=== PATIENT | male | born 1960 | race Two or more races ===

== ENCOUNTER 2019-09-15 14:15 | Inpatient (IN) | payer MEDICARE, OTHER ==
[~2019-09-15] VITALS: Ht 162.6 cm; Wt 69.0 kg
[2019-09-15] MEDS ORDERED: SODIUM CHLORIDE 0.9% 1,000 ML IV ONE ×3 (14:36→16:30)
[2019-09-15] MEDS ORDERED: MIDAZOLAM DRIP 50 mg/50mL 50 ML IV SCH (14:41)
[2019-09-15] MEDS ORDERED: ETOMIDATE (2MG/ML) 20ML VIAL IV ONE ×2 (14:42→14:45)
[2019-09-15] MEDS ORDERED: SUCCINYLCHOLINE CHLORIDE 20 MG/ML 10ML VIAL IV ONE ×2 (14:42→14:45)
[2019-09-15] MEDS ORDERED: MIDAZOLAM DRIP 50 mg/50mL 50 ML IV ONE ×2 (14:43→17:35)
[2019-09-15] MEDS ORDERED: cefTRIAXone 1GM/50ML D5W 50 ML IV ONE (14:45)
[2019-09-15 15:15] VITALS: BP 162/91
[2019-09-15 15:18] LABS: Basophils # (auto) 0 uL; Basophils % (auto) 0.9 % (0.0-2.0); Eosinophils # (auto) 0.1 uL; Eosinophils % (auto) 1.4 % (0.0-7.0); Hematocrit 26.5 % (41.0-53.0); Hemoglobin 9.2 g/dL (13.5-17.5); Lymphocytes # (auto) 0.5 uL; Lymphocytes % (auto) 8.7 % (10.0-50.0); Mean Corpuscular Hemoglobin 32.6 pg (28.0-32.0); Mean Corpuscular Hgb Conc. 34.5 g/dL (32.0-36.0); Mean Corpuscular Volume 94.3 fL (80.0-100.0); Monocytes # (auto) 0.4 uL; Monocytes % (auto) 7.9 % (0.0-12.0); Neutrophils # (auto) 4.4 uL; Neutrophils % (auto) 81.1 % (37.0-80.0); Platelet Count (auto) 64 10^3/uL (140-450); Red Blood Cells 2.81 10^6/uL (4.5-5.90); Red Cell Distribution Width 16.9 % (11.8-14.3); White Blood Cell 5.4 10^3/uL (4.4-10.8)
[2019-09-15] MEDS ORDERED: PROPOFOL 100 ML IV ONE (15:25)
[2019-09-15 15:39] LABS: Alanine Aminotransferase 37 U/L (16-61); Anion Gap 9 (5-15); Aspartate Aminotransferase 47 U/L (15-37); BUN/Creatinine Ratio 22.5; Blood Urea Nitrogen 27 mg/dL (7-18); Carbon Dioxide 20 mmol/L (21-32); Chloride 109 mmol/L (98-107); GFR African American 79 mL/min; GFR Non-African American 66 mL/min; Glucose 156 mg/dL (74-106); Potassium 4.2 mmol/L (3.5-5.1); Sodium 138 mmol/L (136-145)
[2019-09-15 15:43] LABS: Alkaline Phosphatase 99 U/L (45-117); Total Protein 7.2 g/dL (6.4-8.2)
[2019-09-15 15:48] LABS: INR 1.31 (0.9-1.15); Partial Thromboplastin Time 30.7 sec (23.64-32.05)
[2019-09-15] MEDS: PROPOFOL 100 ML IV SCH (16:04)
[2019-09-15 16:07] LABS: Urine WBC None Seen /hpf (0 - 3)
[2019-09-15 16:33] LABS: Urine Bacteria NONE SEEN /hpf (None Seen); Urine Blood Negative /uL (Negative); Urine Specific Gravity 1.017 (1.001-1.035)
[2019-09-15 16:40] VITALS: BP 101/56
[2019-09-15 17:15] LABS: Alcohol, Urine < 3.0 mg/dL (0-5); Amphetamine Screen, Urine NEGATIVE (NEGATIVE); Barbiturate Scree,Urine NEGATIVE (NEGATIVE); Benzodiazephine Screen, Urine NEGATIVE (NEGATIVE); Cannabinoid Screen, Urine NEGATIVE (NEGATIVE); Cocaine Screen, Urine NEGATIVE (NEGATIVE); Opiate Scree,Urine NEGATIVE (NEGATIVE); Phencyclidine Screen, Urine NEGATIVE (NEGATIVE)
[2019-09-15] MEDS ORDERED: MORPHINE SULF INJ 2 MG/ML SYRINGE 1ML IV PRN (17:30)
[2019-09-15] MEDS ORDERED: NITROGLYCERIN 0.4 MG SL TAB SL PRN (17:30)
[2019-09-15] MEDS: fentaNYL Drip 2500mCg/250mlNS 250 ML IV SCH (17:35)
[2019-09-15] MEDS: SODIUM CHLORIDE 0.9% 1,000 ML IV SCH (17:42)
[2019-09-15] MEDS ORDERED: NOREPINEPHRINE 8 MG/250ML KIT 250 ML IV ONE (17:47)
[2019-09-15] MEDS: NOREPINEPHRINE 8 MG/250ML KIT 250 ML IV SCH (17:50)
[2019-09-15 18:24] VITALS: BP 93/56
[2019-09-15 19:57] VITALS: BP 97/63
[2019-09-15 22:02] VITALS: BP 116/70
[2019-09-15 23:55] VITALS: BP 116/70
[2019-09-16] VITALS (15 sets, daily range): BP systolic 93–106; BP diastolic 54–65
[2019-09-16] MEDS: PROPOFOL 100 ML IV SCH (04:20)
[2019-09-16 06:42] LABS: Basophils # (auto) 0.1 uL; Eosinophils # (auto) 0.6 uL; Hematocrit 24.6 % (41.0-53.0); Hemoglobin 8.7 g/dL (13.5-17.5); Lymphocytes # (auto) 1.1 uL; Lymphocytes % (auto) 15.6 % (10.0-50.0); Mean Corpuscular Hemoglobin 32.9 pg (28.0-32.0); Mean Corpuscular Hgb Conc. 35.3 g/dL (32.0-36.0); Mean Corpuscular Volume 93.3 fL (80.0-100.0); Monocytes # (auto) 0.8 uL; Monocytes % (auto) 10.4 % (0.0-12.0); Neutrophils # (auto) 4.6 uL; Platelet Count (auto) 66 10^3/uL (140-450); Red Blood Cells 2.63 10^6/uL (4.5-5.90); Red Cell Distribution Width 16.9 % (11.8-14.3); White Blood Cell 7.2 10^3/uL (4.4-10.8)
[2019-09-16 06:43] LABS: Potassium 3.3 mmol/L (3.5-5.1)
[2019-09-16 06:49] LABS: Albumin 2.5 g/dL (3.4-5.0); BUN/Creatinine Ratio 22.1; Bilirubin, Total 2.2 mg/dL (0.2-1.0); Calcium 7.2 mg/dL (8.5-10.1); Total Protein 6.1 g/dL (6.4-8.2)
[2019-09-16] MEDS: SODIUM CHLORIDE 0.9% 1,000 ML IV SCH (06:54)
[2019-09-16] MEDS: NOREPINEPHRINE 8 MG/250ML KIT 250 ML IV SCH (06:54)
[2019-09-16] MEDS ORDERED: POTASSIUM CHLORIDE 20 MEQ, LIDOCAINE 1% (LOCAL ANESTH.) 2 ML in SODIUM CHL 0.9% 100 ML IV ONE (10:00)
[2019-09-16] MEDS ORDERED: ENOXAPARIN SOD 40 MG/0.4 ML SYRINGE SC SCH (10:00)
[2019-09-16] MEDS: LEVOFLOXACIN 750MG 150 ML IV SCH (10:12)
[2019-09-16] MEDS: PANTOPRAZOLE 40 MG/10 ML VIAL INJ IV SCH ×2 (10:57→21:59)
[2019-09-16] MEDS: SOD CHL 0.45% 1,000 ML IV SCH ×2 (11:15→21:58)
[2019-09-16] MEDS: POTASSIUM CHLORIDE 40 MEQ, LIDOCAINE 1% (LOCAL ANESTH.) 4 ML in SODIUM CHL 0.9% 100 ML IV ONE ×2 (11:15→12:12)
[2019-09-16] MEDS ORDERED: METOCLOPRAMIDE HCL 5MG/ml INJ 2ml VIAL IV ONE (11:30)
[2019-09-16] MEDS ORDERED: EPINEPHrine HCL 1 MG/10 ML SYRG ONE (12:28)
[2019-09-16] MEDS ORDERED: MIDAZOLAM HCL 5 MG/ML-1ML VIAL ONE (12:28)
[2019-09-16] MEDS ORDERED: SODIUM CHLORIDE LOCK 0 ML ONE (12:28)
[2019-09-16] MEDS ORDERED: OCTREOTIDE ACETATE 100 MCG in SODIUM CHL 0.9% 50 ML IV ONE (13:00)
[2019-09-16] MEDS: metroNIDAZOLE 500MG/100ML 100 ML IV SCH ×2 (14:00→21:59)
[2019-09-16 14:08] LABS: Hemoglobin 8.6 g/dL (13.5-17.5)
[2019-09-16 14:10] LABS: Hematocrit 24.8 % (41.0-53.0)
[2019-09-16] MEDS: OCTREOTIDE ACETATE 500 MCG in SODIUM CHL 0.9% 99 ML IV SCH ×2 (14:20→22:25)
--- NOTE | 2019-09-16 16:39 | NUR ---
PULLED BACK ETT PER XRAY. ETT AT 22CM AT THE LIPLINE.
[2019-09-16] MEDS: fentaNYL Drip 2500mCg/250mlNS 250 ML IV SCH (17:47)
[2019-09-16 19:05] LABS: Hematocrit 24.9 % (41.0-53.0); Hemoglobin 8.4 g/dL (13.5-17.5)
[2019-09-17] VITALS (43 sets, daily range): BP systolic 98–132; BP diastolic 51–76
[2019-09-17 00:34] LABS: Hematocrit 27.3 % (41.0-53.0); Hemoglobin 9.1 g/dL (13.5-17.5)
[2019-09-17] MEDS: fentaNYL Drip 2500mCg/250mlNS 250 ML IV SCH (02:07)
[2019-09-17] MEDS: metroNIDAZOLE 500MG/100ML 100 ML IV SCH ×3 (06:29→22:00)
[2019-09-17] MEDS ORDERED: MIDAZOLAM DRIP 50 mg/50mL 50 ML IV ONE (07:33)
[2019-09-17] MEDS: SOD CHL 0.45% 1,000 ML IV SCH ×2 (08:32→18:18)
[2019-09-17] MEDS: MIDAZOLAM DRIP 50 mg/50mL 50 ML IV SCH (08:32)
[2019-09-17] MEDS: OCTREOTIDE ACETATE 500 MCG in SODIUM CHL 0.9% 99 ML IV SCH ×2 (08:40→18:20)
--- NOTE | 2019-09-17 08:40 | NUR ---
WOUND CARE NOTE: PATIENT RECENTLY ADMITTED TO [facility] WITH DIAGNOSIS OF ACUTE RESPIRATORY FAILURE. CURRENT POLY SCORE IS 12. PATIENT IS INTUBATED, SEDATED, ICU STATUS IN THE ER. HE IS RESTING ON HOSPITAL BED FOR COMFORT. HE HAS MULTIPLE INTACT SCRATCHES TO BLE, BUT IS OTHERWISE WOUND FREE. SKIN/WOUND PLAN IMPLEMENTED. PATIENT WOULD BENEFIT FROM: FREQUENT TURN SCHEDULE Q 2 HOURS PRN CONDITION PERMITS, WITH PRESSURE REDISTRIBUTION USING PILLOWS/WEDGES, BID/PRN APPLICATION WITH MOISTURE BARRIER CREAM, OPTIFOAM GENTLE SACRAL DRESSING, SKIN/WOUND CARE PLAN, DIETARY CONSULT, CONTINUED MONITORING BY WOUND CARE TEAM.
[2019-09-17] MEDS: PROPOFOL 100 ML IV SCH (08:42)
[2019-09-17] MEDS: PANTOPRAZOLE 40 MG/10 ML VIAL INJ IV SCH ×2 (10:12→22:00)
[2019-09-17] MEDS: LEVOFLOXACIN 750MG 150 ML IV SCH (10:12)
[2019-09-17] MEDS ORDERED: THIAMINE 100mg/ml INJ (200mg/2ml VIAL) IV ONE (10:45)
[2019-09-17] MEDS ORDERED: FOLIC ACID 1 MG in D5W 5% 50 ML IV ONE (10:45)
[2019-09-17 11:09] LABS: Basophils # (auto) 0.1 uL; Eosinophils # (auto) 0.6 uL; Hemoglobin 9.1 g/dL (13.5-17.5); Lymphocytes # (auto) 1.1 uL; Mean Corpuscular Hemoglobin 32.4 pg (28.0-32.0); Mean Corpuscular Hgb Conc. 34.4 g/dL (32.0-36.0); White Blood Cell 6.1 10^3/uL (4.4-10.8)
[2019-09-17 11:10] LABS: Basophils % (auto) 2.1 % (0.0-2.0); Eosinophils % (auto) 9.4 % (0.0-7.0); Hematocrit 26.3 % (41.0-53.0); Lymphocytes % (auto) 18.4 % (10.0-50.0); Monocytes # (auto) 0.8 uL; Monocytes % (auto) 12.4 % (0.0-12.0); Neutrophils # (auto) 3.5 uL; Neutrophils % (auto) 57.7 % (37.0-80.0); Platelet Count (auto) 53 10^3/uL (140-450); Red Cell Distribution Width 16.7 % (11.8-14.3)
[2019-09-17 11:30] LABS: Potassium 3.6 mmol/L (3.5-5.1)
[2019-09-17 11:34] LABS: BUN/Creatinine Ratio 19.3; Total Protein 5.1 g/dL (6.4-8.2)
--- NOTE | 2019-09-17 11:58 | NUR ---
PT OFF SEDATION BUT UNABLE TO FOLLOW COMMANDS. WAITING FOR PT TO WAKE UP TO START CPAP TRIAL.
--- NOTE | 2019-09-17 16:20 | NUR ---
Admit to ICU from ER on vent HAND,JORDONadmitted to ICU via gurney on secured entrance monitor, intubated and being bagged by Respiratory Therapist. Patient transfered to bed, connected to mechanical ventilator by therapist, ALVINO at bedside. AC MODE RR 14 TV 500 30%FI02 PEEP 5. Patient connected to ICU monitoring, weighed by bedscale, oriented to Caty Reilly primary RN, unit, ventilator. No sedation in place. Per report cpap was attempted today but patient did not wake up. Patient noted to move bilateral lower extremities. Patient note opening eyes, no answer simple command. When patient left to rest leg moving noted to stop. Pt to remain off sedation. paged to obtain precedex for sedation. Awaiting callback. NOTE: IV's patent, Trotter draining dark, brown urine. See physical for further assessment.
--- NOTE | 2019-09-17 16:28 | NUR ---
assessment Patient is a 59 year old male on a vent. No family contact in computer. Will try to speak with family if they come to bedside. Addendum: 09/18/19 at 1629 by Nicole TREJO Amended: Links added.
--- NOTE | 2019-09-17 16:31 | NUR ---
PT TRANSPORTED FROM ER TO ICU WITH NO INCIDENT REPORTED PT WAS MANUALLY VENTILATED. PT FARIDA. WELL PLACED PT ON PREVIOUS VENT SETTINGS. SPO2 97%.
[2019-09-17] MEDS: NOREPINEPHRINE 8 MG/250ML KIT 250 ML IV SCH (18:00)
[2019-09-17] MEDS ORDERED: OME20T PO (18:24)
--- NOTE | 2019-09-17 18:24 | NUR ---
HOME MEDICATIONS BOTTLES BROUGHT IN ZIPLOCK BAG AT BEDSIDE BY ER NURSE. MEDICATION LABELS DIFFICULT TO READ LABELS ARE FADED AWAY. UNABLE TO OBTAIN LIST. PT INTUBATED/NON VERBAL, UNABLE TO COMPREHEND. NO FAMILY CONTACT. Addendum: 09/17/19 at 1827 by Caty Reilly RN MEDICATIONS TAKEN TO PHARMACY.
--- NOTE | 2019-09-17 18:58 | NUR ---
MD [facility] HOSPITALIST RE-PAGED FOR LIGHT SEDATION. PT CONTINUES TO MOVE LOWER EXTREMITIES PERIODICALLY, NOT OPENING EYES OR FOLLOWING COMMAND. Addendum: 09/17/19 at 1905 by Caty Reilly RN [facility] CALLED BACK. PATIENT TO BE PLACED ON FENT AT LOW DOSE WITH LOW DOSE OF PROPOFOL IF NEEDED. NO VERSED AT THIS TIME. WILL REPORT TO NOC NURSE TO LIGHTLY SEDATED FOR POSSIBLE CPAP IN A.M.
--- NOTE | 2019-09-17 20:30 | NUR ---
dr paul called dr paul called, orders received. read back orders and received a verbal confirmation that the read back was accurate.
[2019-09-18] VITALS (94 sets, daily range): BP systolic 81–126; BP diastolic 39–80
[2019-09-18] MEDS ORDERED: LACTULOSE 20Gm/30ML SOLN PR SCH
[2019-09-18] MEDS: SOD CHL 0.45% 1,000 ML IV SCH (00:44)
--- NOTE | 2019-09-18 03:20 | NUR ---
rectal tube placed as ordered by md paul, rectal tube placed. pt tolerated care. will monitor.
[2019-09-18 04:59] LABS: Basophils # (auto) 0.1 uL; Basophils % (auto) 1.1 % (0.0-2.0); Eosinophils # (auto) 0.2 uL; Eosinophils % (auto) 4.5 % (0.0-7.0); Hematocrit 24.8 % (41.0-53.0); Hemoglobin 8.4 g/dL (13.5-17.5); Lymphocytes # (auto) 0.5 uL; Lymphocytes % (auto) 9.9 % (10.0-50.0); Mean Corpuscular Hemoglobin 32.3 pg (28.0-32.0); Mean Corpuscular Hgb Conc. 34.1 g/dL (32.0-36.0); Mean Corpuscular Volume 94.7 fL (80.0-100.0); Monocytes # (auto) 0.4 uL; Monocytes % (auto) 8.6 % (0.0-12.0); Neutrophils # (auto) 3.7 uL; Neutrophils % (auto) 75.9 % (37.0-80.0); Platelet Count (auto) 41 10^3/uL (140-450); Red Blood Cells 2.61 10^6/uL (4.5-5.90); Red Cell Distribution Width 16.9 % (11.8-14.3); White Blood Cell 4.8 10^3/uL (4.4-10.8)
[2019-09-18] MEDS: OCTREOTIDE ACETATE 500 MCG in SODIUM CHL 0.9% 99 ML IV SCH (05:09)
[2019-09-18] MEDS ORDERED: PROPOFOL 0 ML IV ONE (05:19)
[2019-09-18 05:21] LABS: Albumin 2.1 g/dL (3.4-5.0); Calcium 7.1 mg/dL (8.5-10.1); Potassium 3.8 mmol/L (3.5-5.1)
[2019-09-18 05:24] LABS: BUN/Creatinine Ratio 19.7; Bilirubin, Total 1.9 mg/dL (0.2-1.0); Total Protein 5.1 g/dL (6.4-8.2)
[2019-09-18] MEDS: metroNIDAZOLE 500MG/100ML 100 ML IV SCH ×3 (06:00→22:08)
[2019-09-18] MEDS: LACTULOSE 20Gm/30ML SOLN PR SCH ×2 (06:00)
--- NOTE | 2019-09-18 07:30 | NUR ---
REPORT REPORT RECEIVED FROM CANDICE RNTERRY. BEDSIDE CHECK DONE. PT RESTING IN BED WITH EYES OPEN AND OCCASIONALLY LIFTING BOTH OF HIS ARMS UP IN THE AIR. DOES NOT FOLLOW ANY SIMPLE COMMANDS.
[2019-09-18] MEDS: MIDAZOLAM DRIP 50 mg/50mL 50 ML IV SCH (07:31)
--- NOTE | 2019-09-18 07:50 | NUR ---
MD/PHONE RECEIVED A PHONE CALL FROM DR CHARLES. SHE ASKED IF PT AWAKE AND FOLLOWING COMMANDS YET. I LET HER KNOW THAT THE DIPRIVAN WAS RESTARTED AND IS RUNNING AT 15 MCG PT WAS VERY RESTLESS AND THROWING HIS LEGS OVER THE SIDE OF THE BED DURING THE MIDDLE OF THE NIGHT. WILL TURN OFF THE DIPRIVAN WHEN I DO MY ASSESSMENT SO I CAN MONITOR HIM.
[2019-09-18] MEDS ORDERED: OCTREOTIDE ACETATE 500 MCG in SODIUM CHL 0.9% 99 ML IV SCH (08:00)
--- NOTE | 2019-09-18 08:30 | NUR ---
ASSESSMENT SEDATION TURNED OFF PER DR CHARLES. PT OPENS EYES TO ST Addendum: 09/18/19 at 0928 by Danya Calderon RN STIMULATION, BUT DOES NOT FOLLOW ANY SIMPLE COMMANDS. ON THE VENTILATOR WITH SETTINGS : 8 FR ETT/23 AT THE LIP, AC 14, TV 500, 30% FIO2 AND PEEP OF 5. LUNGS CLEAR AND MILDLY DIMINISHED THROUGHOUT. SUCTIONED FOR SMALL AMOUNT OF THIN CLEAR FLUID VIA ETT AND MODERATE AMOUNT OF THICK CLEAR FLUID ORALLY. RR 14. SAT OF 100%. TELE SR 81 WITH INVERTED T WAVES IN LEADS II AND AVF. PALPABLE PULSES TO ALL EXTREMITIES WITH NO EDEMA NOTED. SCDS TO BLE. ABD SOFT WITH HYPOACTIVE BOWEL SOUNDS. NO OGT/NGT DUE TO BANDING OF ESOPHAGEAL VARICES. PT WITH FLEXISEAL AND IS DRAINING WATERY BROWN LIQUID BM. RAY CATHETER DRAINING CLEAR DARK TANNER URINE. TURNED FOR COMFORT TO HIS RIGHT SIDE. SKIN IS INTACT EXCEPT FOR SOME SCABBED SCRATCHES TO BLE. RAILS UP X4 AND BED ALARM ON FOR PT SAFETY. CONTINUE TO MONITOR.
--- NOTE | 2019-09-18 09:20 | NUR ---
CPAP STARTED ON CPAP PER DR CHARLES. 84-17 100% AND 97/60. CPAP WITH FIO2 OF 30% , PEEP OF 5, AND PRESSURE SUPPORT OF 8. CONTINUE TO MONITOR.
--- NOTE | 2019-09-18 09:28 | NUR ---
A BIT RESTLESS,PT SHIFTING HIS POSITION IN BED. 87-19-100% AND 97/60. CONTINUE TO MONITOR.
[2019-09-18] MEDS: LEVOFLOXACIN 750MG 150 ML IV SCH (10:32)
[2019-09-18] MEDS: THIAMINE 100mg/ml INJ (200mg/2ml VIAL) IV SCH (10:33)
[2019-09-18] MEDS: FOLIC ACID 1 MG in D5W 5% 50 ML IV SCH (10:33)
[2019-09-18] MEDS: PANTOPRAZOLE 40 MG/10 ML VIAL INJ IV SCH ×2 (10:33→22:08)
--- NOTE | 2019-09-18 11:20 | NUR ---
PT. EXTUBATED AND PLACED ON 30% COOL AEROSOL MASK, PER DR. CHARLES'S T.O.. VITALS: HR=81,RR=16, ML92=111%,GG=879/58. NO RESP. DISTRESS NOTED. BS. ARE CLEAR BILATERALLY. PT. HAS A GOOD COUGH, COUGHS UP SOME PALE WHITE TO YELLOW SECRETIONS. NO STRIDOR NOTED AT THIS TIME.
--- NOTE | 2019-09-18 12:20 | NUR ---
LUNGS REMAIN CLEAR. CMM AT 30% AND O2 SAT OF 98%. PT NOT QUITE RESTLESS EARLIER. CONTINUE TO MONITOR/
[2019-09-18] MEDS ORDERED: LORazepam 2MG/ML-1ML VIAL IV ONE (13:45)
--- NOTE | 2019-09-18 13:45 | NUR ---
PT BECOMING VERY RESTLESS AND UNCOOPERATIVE. HE KEEPS TRYING TO GET OOB. HE WANTS TO EAT AND GO HOME. I PAGED DR CHARLES AND SHE CAME AND TALKED TO THE PT LETTING HIM KNOW THAT HE JUST CAME OFF THE VENTILATOR AND IS TOO SICK TO GO HOME. PT NOT SATISFIED.
[2019-09-18] MEDS ORDERED: LORazepam 2MG/ML-1ML VIAL ONE (13:52)
--- NOTE | 2019-09-18 13:55 | NUR ---
STEPPED OUT TO THE PANTRY TO GET HIM SOME JUICE AND THE BED ALARM WENT OFF, PT TRYING TO GET OOB. PULLED PT BACK UP IN BED. ADMINISTERED 1 MG IV ATIVAN PER DR CHARLES.
[2019-09-18] MEDS: IPRATROPIUM BROM 0.5 MG/2.5ML INH SOL NEB SCH ×2 (13:58→16:07)
[2019-09-18] MEDS: ALBUTEROL SULF 2.5 MG/0.5ML(0.5%) NEB SOLN NEB SCH ×2 (13:58→16:07)
[2019-09-18] MEDS: GABAPENTIN 300 MG CAP PO SCH ×2 (14:16→22:09)
--- NOTE | 2019-09-18 15:00 | NUR ---
Nutrition Consult/Assessment Notes please see attached link for complete assessment Est. Needs BW 65 [id number] kcal (25-30 kcal/kgBW), 65-84 gms pro (1.0-1.3 gms/kgBW r/t severe hypoalb). Will continue to monitor pertinent labs and reassess nutrient need prn Addendum: 09/18/19 at [address] Amended: Links added.
--- NOTE | 2019-09-18 15:04 | NUR ---
PT STILL TRYING TO GET OOB BUT NOW HAS A SITTER , CANDACE ESCOBAR, AT THE BEDSIDE FOR PT SAFETY.
--- NOTE | 2019-09-18 15:55 | NUR ---
RESPIRATORY/MD PT NOTED TO HAVE VS: 120-43-98% AND 91/53. INCREASED WORK OF BREATHING WITH GRUNTING SOUND MADE. LUNGS CLEAR AND NO STRIDOR NOTED. TRIED TO CALM PT BUT DID NOT MAKE A DIFFERENCE. PAGED DR CHARLES AND SHE WANTS AN ABG AND SHE IS COMING.
--- NOTE | 2019-09-18 16:45 | NUR ---
RETURNED FROM LUNCH. JOSHUA FELICIANO RN COVERED FOR ME WHILE I WAS GONE. PT NOW RESTING QUIETLY AND VSS. DR ENAMORADO AT THE BEDSIDE AND PREPARING FOR A THORACENTESIS.
--- NOTE | 2019-09-18 17:00 | NUR ---
THORACENTESIS COMPLETED AND 2300ML REMOVED. SAMPLE TAKEN TO LAB FOR TESTS ORDERED BY DR ENAMORADO. PT STILL RESTING , WITHDRAWS TO PAINFUL STIMULI. VSS CONTINUE TO MONITOR.
[2019-09-18 17:25] LABS: Calcium 7.2 mg/dL (8.5-10.1)
[2019-09-18 17:28] LABS: BUN/Creatinine Ratio 15.6; Potassium 3.6 mmol/L (3.5-5.1)
[2019-09-18] MEDS ORDERED: SODIUM BICARBONATE 8.4 % INJ 50ML VIAL IV ONE (18:00)
[2019-09-18] MEDS ORDERED: LACTULOSE 20Gm/30ML SOLN PO SCH (18:00)
--- NOTE | 2019-09-18 19:30 | NUR ---
REPORT REPORT GIVEN TO SADI HARVEY RN.
--- NOTE | 2019-09-18 19:35 | NUR ---
DR CHARLES CALLED AND WAS UPDATED ON THE PT'S CONDITION, STILL SLEEPY, NOT AWAKE ENOUGH TO TRY TO GIVE ANYTHING ORALLY AND SBP IN THE 80'S. ORDERED RECEIVED FOR ALBUMIN 2 BOTTLES, NS AT 75ML/HR AND LACTULOSE BACK TO PER RECTUM. ALSO MADE AWARE OF 2300 ML FLUID OFF WITH THORACENTESIS.
--- NOTE | 2019-09-18 19:36 | NUR ---
Opening Shift Note Assumed care of patient, lying on bed with eyes closed, arousal by voice, oriented to self, still sleepy and garbled. Breathing even and nonlabored, on Venturi mask 50% 10LPM, No S/S of distress/SOB or pain. BP low, SBP in the 80's MAP 50's-60's, MD made aware and ordered IVF and Albumin for Pt, will administer fluid as order. TLC at right IJ, positive blood return, flushed well. Saline locks at arms x3, flushed well. Trotter's catheter hung to gravity with dark kirk urine. Flexi seal in place with dark brown watery stool in the tubing. Bed in low position, call light within reach, all alarms are audible, fall and safety precaution in place, will put SCD to both legs. Instructed on POC and to call for assist PRN, will continue to monitor for changes Q1hr and PRN.
[2019-09-18] MEDS ORDERED: ALBUMIN 25% 100 ML IV ONE ×2 (19:45)
[2019-09-18] MEDS: SODIUM CHLORIDE 0.9% 1,000 ML IV SCH (20:48)
--- NOTE | 2019-09-18 21:05 | NUR ---
Stool occult blood sent.
--- NOTE | 2019-09-18 22:00 | NUR ---
Restless/ confusion Pt woke up and slide down to the end of the bed. Pt pulled oxygen mask. The bed exit alarmed. Helped Pt back to bed. Pt confused, said I want to go home, not aware of the situation regardless explanation. Patient said I want a sandwich. Pt refused other kind of food.
[2019-09-18] MEDS: chlordiazePOXIDE HCL 5 MG CAP PO PRN (22:09)
--- NOTE | 2019-09-18 22:30 | NUR ---
Supplement/ medication Provided Pt apple sauce, orange juice, a cup of soup. Librium PRN given. Pt cooperated with medication given. Pt still confused and asked to go home, bathroom, garage. Pt asked to get on the ambulance. Pt asked for pants. Adjusted position and helped Pt to have a cup of soup and apple sauce. Pt swallowed well without coughing. Pt unable to lay still. Pt moved and agitated q3-10mins.
--- NOTE | 2019-09-18 23:00 | NUR ---
Elimination Flexi seal leaked, small to moderate dark black/ brown. Pt agitated, linens dirty from moving around. Cleaning done, linen changed. Continue care.
--- NOTE | 2019-09-18 23:30 | NUR ---
Condition update/ agitation Pt woke up after rested on bed for 15mins and tried to get OOB. Sitter at bedside at this time for safety. Pt asked for more soup. Pt drank a cup of soup well, no coughing upon swallowing. Continue care. Addendum: 09/19/19 at 0458 by Cuate Platt RN Pt was a feeder. Pt able to hold a cup weakly but unable to lift the cup and drink by self independently.
[2019-09-19] VITALS (71 sets, daily range): BP systolic 72–122; BP diastolic 29–72
[2019-09-19] MEDS: ALBUTEROL SULF 2.5 MG/0.5ML(0.5%) NEB SOLN NEB SCH ×5 (00:04→23:47)
[2019-09-19] MEDS: IPRATROPIUM BROM 0.5 MG/2.5ML INH SOL NEB SCH ×5 (00:04→23:46)
--- NOTE | 2019-09-19 00:04 | NUR ---
Condition update/ agitation Pt was very agitated and tried to get OOB at all time. Labile BP with difficulty to measure due to agitation. Paged Hospitalist. 00.09am Pt's condition notified to Tez MACEDO. Haldol 2.5mg IM once ordered, will administer as order, see EMAR for details.
[2019-09-19] MEDS ORDERED: HALOPERIDOL LACTATE 5 MG/ML INJ VIAL IM ONE (00:15)
[2019-09-19] MEDS: LACTULOSE 20Gm/30ML SOLN PR SCH ×2 (00:25→05:17)
--- NOTE | 2019-09-19 00:35 | NUR ---
Condition update/ restless Pt agitated, tried to get OOB all the time, Haldol given as order. Pt tried to pull tubes and wires. Put mittens on. Sitter at bedside. Lactulose MD giving as order. Addendum: 09/19/19 at 0209 by Cuate Platt RN BP labile with difficulty to measure due to agitation. See VS sheet for details.
--- NOTE | 2019-09-19 01:30 | NUR ---
Condition update/ linen changed/ agitation/ skin tear Pt moving on bed, tried sit up, get OOB. All linens dirty. Saline locks x2 on both arms leaking from agitation, will d/c later. Partial cleaning done, complete linen changed. Mittens changed. Noted a skin tear at right FA after Pt lying back and slightly calm down. Wound d/s done with NS and patted dry, covered with Optifoam. Fall and safety precaution in place. Continue care. Addendum: 09/19/19 at 0215 by Cuate Platt RN Pt slightly SOB with mild audible wheezing due to agitation. No desaturation. Pt asked for oxygen. Put Pt on O2NC 2LPM for comfort and support. Re-oriented Pt and try to calm the Pt down. Continue monitoring.
--- NOTE | 2019-09-19 01:56 | NUR ---
IV removal IV DC'd with clean sterile technique at left wrist/FA due to leaking/ agitating, catheter fully intact. Pressure dressing applied to site. Patient tolerated well. IV DC'd with clean sterile technique at right FA due to leaking/ agitating, catheter fully intact. Pressure dressing applied to site.
--- NOTE | 2019-09-19 02:47 | NUR ---
ROUNDED: SLEEPING. EVEN AND UNLABORED BREATHING. VSS. WILL CONT CARE
--- NOTE | 2019-09-19 02:48 | NUR ---
SBP READING IN THE 70-80s, CUFF ON CALF AND PATIENT RESTING WITH LEGS ELEVATED.
[2019-09-19 03:44] LABS: Basophils # (auto) 0 uL; Eosinophils # (auto) 0.1 uL; Lymphocytes # (auto) 0.5 uL; Monocytes # (auto) 0.4 uL; Neutrophils # (auto) 4.1 uL; Neutrophils % (auto) 78.3 % (37.0-80.0); White Blood Cell 5.2 10^3/uL (4.4-10.8)
[2019-09-19 03:46] LABS: Basophils % (auto) 0.5 % (0.0-2.0); Eosinophils % (auto) 2.7 % (0.0-7.0); Hematocrit 20.4 % (41.0-53.0); Hemoglobin 7.2 g/dL (13.5-17.5); Lymphocytes % (auto) 10.2 % (10.0-50.0); Mean Corpuscular Hemoglobin 33.3 pg (28.0-32.0); Mean Corpuscular Hgb Conc. 35.3 g/dL (32.0-36.0); Mean Corpuscular Volume 94.3 fL (80.0-100.0); Monocytes % (auto) 8.3 % (0.0-12.0); Platelet Count (auto) 35 10^3/uL (140-450); Red Blood Cells 2.16 10^6/uL (4.5-5.90); Red Cell Distribution Width 16.8 % (11.8-14.3)
--- NOTE | 2019-09-19 04:00 | NUR ---
Condition update/ labile BP Pt resting in bed, breathing even and nonlabored, POX 100% with O2NC 2LPM. EKG showed SR, HR 70's, BP 80's/40's, will repeat and page Hospitalist of persistence. Continue care.
[2019-09-19 04:04] LABS: Albumin 2.4 g/dL (3.4-5.0); Calcium 7.3 mg/dL (8.5-10.1); Potassium 3.4 mmol/L (3.5-5.1)
[2019-09-19 04:08] LABS: Total Protein 5.1 g/dL (6.4-8.2)
[2019-09-19 04:20] LABS: BUN/Creatinine Ratio 17.4
[2019-09-19] MEDS: metroNIDAZOLE 500MG/100ML 100 ML IV SCH ×3 (05:16→21:37)
--- NOTE | 2019-09-19 05:20 | NUR ---
Condition update Hospitalist called back, Pt's condition reported, order received to give 5% albumin 250ml IV once. Pt woke up, agitated. Breathing tachypneic and moist while agitated, no desaturation with 2LPM O2NC. BP increased when awake to 90's/50's, will hold Albumin for now and recheck again. Lactulose giving through VT. Continue care and will endorsed to day shift.
[2019-09-19] MEDS: GABAPENTIN 300 MG CAP PO SCH ×3 (06:17→22:00)
[2019-09-19] MEDS ORDERED: ALBUMIN 5% 250 ML IV ONE (06:30)
--- NOTE | 2019-09-19 07:30 | NUR ---
REPORT REPORT RECEIVED FROM CNADICE RNSADI. BEDSIDE CHECK DONE. PT HAS A SITTER, HOA, AT THE BEDSIDE FOR PT SAFETY, AT TIMES HE TRIES TO GET OOB. PT RESTING IN BED AND A/O TO SELF ONLY. CONTINUE TO MONITOR.
--- NOTE | 2019-09-19 08:25 | NUR ---
PT TEACHING PT A/O TO SELF ONLY, NOT RETAINING INFORMATION PROVIDED. Addendum: 09/19/19 at 1448 by Danya Calderon RN Amended: Links added.
--- NOTE | 2019-09-19 08:25 | NUR ---
ASSESSMENT PT AWAKE BUT A/O TO NAME. MOVES ALL EXTREMITIES AND IS STILL RESTLESS AT TIMES. HOA DUMONT, AT THE PT'S BEDSIDE TO ASSIST PT AND PREVENT PT FROM GETTING OOB. LUNGS CLEAR THROUGHOUT. O2 AT 2 L/M VIA NC WITH O2 SAT OF 97%. TELE SR WITH INVERTED T WAVES IN LEAD AVL AND AVF. PALPABLE PULSES TO ALL EXTREMITIES. RAY CATHETER DRAINING CLEAR DARK TANNER URINE. FLEXISEAL IN PLACE AND DRAINING SCANT AMOUNT OF THIN WATERY BROWN FLUID. SKIN IS INTACT. REPOSITIONED ON TO HIS BACK FOR BREAKFAST. CONTINUE TO MONITOR.
[2019-09-19] MEDS: SODIUM CHLORIDE 0.9% 1,000 ML IV SCH ×2 (08:44→12:30)
--- NOTE | 2019-09-19 09:00 | NUR ---
GABRIELA O TECH, AT BEDSIDE AND ECHO IN PROGRESS.
--- NOTE | 2019-09-19 09:05 | NUR ---
SBP IN THE 70'S. INFUSING 5% ALBUMIN ORDERED PREVIOUSLY. PAGING DR CHARLES TO SEE IF SHE WANTS PRESSORS.
--- NOTE | 2019-09-19 09:15 | NUR ---
SPOKE WITH DR CHARLES, BY PHONE, AND ADVISED OF SBP 70'S AND THAT A ONE TIME ORDER OF IV ALBUMIN IS INFUSING. SHE WANTS ME TO PLACE TH PT IN [place] AND SHE WILL BE COMING TO SEE HIM.
--- NOTE | 2019-09-19 09:24 | NUR ---
RECHECKED PT'S BP AND NOW 85/51. CONTINUE TO MONITOR.
[2019-09-19] MEDS: cefTRIAXone 1GM/50ML D5W 50 ML IV SCH (10:34)
[2019-09-19] MEDS: THIAMINE 100mg/ml INJ (200mg/2ml VIAL) IV SCH (10:35)
[2019-09-19] MEDS: PANTOPRAZOLE 40 MG/10 ML VIAL INJ IV SCH ×2 (10:35→20:26)
[2019-09-19] MEDS: FOLIC ACID 1 MG in D5W 5% 50 ML IV SCH (11:02)
--- NOTE | 2019-09-19 11:10 | NUR ---
PT NOW WITH COARSE EXP RHONCHI THROUGHOUT. RR NOW 24-26. CALLED AND NOTIFIED DR CHARLES. SHE STATES SHE WILL PUT IN AN ORDER FOR STEROIDS. AWAITING ORDER.
--- NOTE | 2019-09-19 11:22 | NUR ---
MD VISIT DR FRITZ IN TO SEE THE PT. UPDATED HIM ON THE PT'S CONDITION. HE IS AWARE OF THE DROP IN THE H/H TO 7.2/20.4 AND ASKED IF ANY BLEEDING. TOLD HIM NONE SO FAR THIS SHIFT AND NONE REPORTED BY NIGHT RN. CONTINUE TO MONITOR.
--- NOTE | 2019-09-19 12:30 | NUR ---
RAY/FLEXISEAL/HEAD CT PT'S RAY CATHETER AND FLEXISEAL DC'D PER DR CHARLES. TOLERATED WELL BY PT. PT THEN TRANSPORTED TO RADIOLOGY SEPT FRO HEAD CT WITH NO CONTRAST. PT ON PORTABLE O2 AND SWEET POTATO DISINTEGRATOR FOR TRANSPORT AND TEST.
--- NOTE | 2019-09-19 12:50 | NUR ---
PT RETURNED TO ROOM FROM CT SCANS. CONNECTED TO BEDSIDE MONITORING AND O2,. ALSO RESTARTED IVF OF NS AT 50 ML/HR. CONTINUE TO MONITOR.
[2019-09-19 13:17] LABS: Hematocrit 22.3 % (41.0-53.0); Hemoglobin 7.6 g/dL (13.5-17.5)
--- NOTE | 2019-09-19 13:22 | NUR ---
PT TAKING HIS CLEAR LIQUID LUNCH, FED BY DIRECTOR DATA. HE FALLS ASLEEP OFF AND ON. CONTINUE TO MONITOR.
--- NOTE | 2019-09-19 13:41 | NUR ---
re-assessment Per consult unable to obtain patients correct information, address, no family. I have not been able to obtain any information on patient either. I have notified Danya SHELTON to call me if family or friends come in. Addendum: 09/19/19 at 1350 by Nicole Zee Amended: Links added.
--- NOTE | 2019-09-19 15:00 | NUR ---
PT SLEEPING WITH RESPIRATIONS EVEN AND UNLABORED. LUNGS WITH MILD EXPIRATORY WHEEZING NOTED BILATERALLY. O2 SAT OF 92% WITH O2 AT 2 L/M VIA NCA. PT HAS BEEN DOWNGRADED TO MED SURG WITH A SITTER. STILL WAITING FOR A BED ASSIGNMENT.
--- NOTE | 2019-09-19 16:30 | NUR ---
INCONTINENT OF A LARGE AMOUNT OF YELLOW URINE. SUNNY CARE GIVEN AND PARTIAL LINEN CHANGE DONE.
--- NOTE | 2019-09-19 18:14 | NUR ---
PT STILL GROGGY BUT TRYING TO GET OOB. BECOMES SOB WITH THE EXERTION. PULLED UPP IN BED AND TRIED TO MAKE COMFORTABLE AND ARE NOW WAITING FOR THE DINNER TO BE DELIVERED.
[2019-09-19 18:31] LABS: Hematocrit 22.7 % (41.0-53.0); Hemoglobin 7.8 g/dL (13.5-17.5)
--- NOTE | 2019-09-19 19:30 | NUR ---
report received and assumed care; see interventions for assessment; pt. in bed and repositioned for comfort and safety; sitter at bedside-pt. continuing to attempt to get out of bed; vs stable at this time; will cont. to monitor.
--- NOTE | 2019-09-19 20:10 | NUR ---
pt. c/o nausea; gave protonix ivp now instead of 22:00; will cont. to monitor.
--- NOTE | 2019-09-19 22:55 | NUR ---
REPORT GIVEN TO NIKITA WONG AND WILL TRANSPORT PATIENT TO RM#[id number] WITH A SITTER.
--- NOTE | 2019-09-19 23:05 | NUR ---
[facility] TRANSFER TO TELEMETRY JORDON HAND received to Telemetry unit from [facility] after telephone report received. Patient oriented to Ani Urbano, primary RN, unit, room, bed, and unit policies regarding patient care and visiting hours. Patient now on continuous telemetry monitoring, tele box # [id number] and telemetry reading on arrival to unit is sinus rhythm 94. Patient placed on bedside oxygen, weighed by bedscale and encouraged to call if they need something.Patient oriented to self only. Sitter at bedside for patient safety. Will continue to monitor Q1hour and prn.
[2019-09-20 01:22] LABS: Hematocrit 22.8 % (41.0-53.0); Hemoglobin 7.6 g/dL (13.5-17.5)
[2019-09-20] MEDS: metroNIDAZOLE 500MG/100ML 100 ML IV SCH ×3 (06:15→21:41)
[2019-09-20] MEDS: GABAPENTIN 300 MG CAP PO SCH ×3 (06:16→21:40)
[2019-09-20 06:18] LABS: Basophils # (auto) 0 uL; Eosinophils # (auto) 0.3 uL; Hematocrit 21.4 % (41.0-53.0); Hemoglobin 7.4 g/dL (13.5-17.5); Lymphocytes # (auto) 0.6 uL; Lymphocytes % (auto) 14.1 % (10.0-50.0); Monocytes # (auto) 0.5 uL; Platelet Count (auto) 45 10^3/uL (140-450); White Blood Cell 4.5 10^3/uL (4.4-10.8)
[2019-09-20 06:20] LABS: Basophils % (auto) 0.9 % (0.0-2.0); Eosinophils % (auto) 6.3 % (0.0-7.0); Mean Corpuscular Hgb Conc. 34.6 g/dL (32.0-36.0); Mean Corpuscular Volume 95.2 fL (80.0-100.0); Monocytes % (auto) 10.5 % (0.0-12.0); Neutrophils % (auto) 68.2 % (37.0-80.0); Red Blood Cells 2.25 10^6/uL (4.5-5.90); Red Cell Distribution Width 16.8 % (11.8-14.3)
[2019-09-20 06:35] LABS: Potassium 3.6 mmol/L (3.5-5.1)
[2019-09-20 06:43] LABS: Albumin 2.7 g/dL (3.4-5.0); BUN/Creatinine Ratio 16.7; Calcium 7.5 mg/dL (8.5-10.1)
[2019-09-20 06:47] LABS: Bilirubin, Total 1.3 mg/dL (0.2-1.0); Total Protein 5.5 g/dL (6.4-8.2)
[2019-09-20] MEDS: IPRATROPIUM BROM 0.5 MG/2.5ML INH SOL NEB SCH ×4 (07:11→23:37)
[2019-09-20] MEDS: ALBUTEROL SULF 2.5 MG/0.5ML(0.5%) NEB SOLN NEB SCH ×4 (07:11→23:37)
--- NOTE | 2019-09-20 08:00 | NUR ---
OPENING SHIFT NOTE ASSUMED CARE OF PATIENT. PATIENT IS AWAKE AND ALERT. NO SOB OR SIGNS OF DISTRESS NOTED. SITTER AT BEDSIDE. INSTRUCTED ON POC AND TO CALL FOR ASSISTANCE PRN. BED IN LOWEST POSITION WITH SIDE RAILS UP X3. MITTENS ON PT FOR SAFETY. WILL CONTINUE TO MONITOR Q1HR.
[2019-09-20 09:00] VITALS: BP 97/60
[2019-09-20] MEDS: PANTOPRAZOLE 40 MG/10 ML VIAL INJ IV SCH ×2 (09:25→21:40)
[2019-09-20] MEDS: chlordiazePOXIDE HCL 5 MG CAP PO PRN ×3 (09:25→21:40)
[2019-09-20] MEDS: cefTRIAXone 1GM/50ML D5W 50 ML IV SCH (09:25)
[2019-09-20] MEDS: THIAMINE 100mg/ml INJ (200mg/2ml VIAL) IV SCH (09:25)
[2019-09-20] MEDS: SODIUM CHLORIDE 0.9% 1,000 ML IV SCH (09:25)
--- NOTE | 2019-09-20 10:41 | NUR ---
Respiratory note: PT ASSESSED FOR PRN. PT AWAKE ALERT AND RESPONSIVE. PT FOUND ON 3 LPM NC TITRATED DOWN TO 2 LPM. SPO2 100%. B/S ARE CLEAR. NO TREATMENT INDICATED AT THIS TIME. PT IN NO DISTRESS AT THIS TIME. INFORMED PT IF BECOMES SOB TO PUSH CALL LIGHT AND RT WILL BE CALLED.
[2019-09-20] MEDS: FOLIC ACID 1 MG in D5W 5% 50 ML IV SCH (10:59)
[2019-09-20 13:00] VITALS: BP 104/62
--- NOTE | 2019-09-20 14:54 | NUR ---
Nutrition Follow-up Notes Wt.: 64.6 kg as of yesterday. Pt's with PT at bedside when rounded this morning. Pt's s/p Ultrasound-guided thoracentesis and successfully extubated (09/18/19), on oxygen via nasal cannula, no signs of distress noted earlier. Pt's currently on Clear Liquid diet with good PO intake aeb 95% ave. consumed meals (x4) since yesterday. Est. Needs BW 65 [id number] kcal (25-30 kcal/kgBW), 65-84 gms pro (1.0-1.3 gms/kgBW r/t severe hypoalb). Will continue to monitor pertinent labs and reassess nutrient need prn Labs: Gluc 141 H, Cl 116 H, Ca 7.5 L, Tot shahida 1.3 H, AST 14 L, AST 38 H, Tpro 5.5 L, Alb 2.7 L. Skin: Roman scale 16, mod risk, pt's left right lower leg multiple small scratches per manager employee relations. Pls refer to latest hr consultant's notes for further details GI: Pt had 925 ml stool output last 09/19/19 per manager employee relations. PES: Altered nutrition related lab values r/t current/chronic medical condition aeb hyperglycemia, severe hypoalb hypocalcemia Will continue to monitor PO intake, skin status, pertinent labs and weight trend. F/u in 3 to 5 days. Rec.: 1.) Advance gradually oral diet (Soft Low Fat with Ensure Enlive 1 carton BID) when medically appropriate. 2.) Continue close supervision during meals. 3) If Albumin continues trending down, consider Prostat 1 pkt BID. 3.) Consider daily MVI with minerals and Asc acid 500 mgs BID prn. 4.) Refer pt to RD for further nutrition education and weight monitoring upon discharge. 5.) Continue current plan of care.
--- NOTE | 2019-09-20 16:00 | NUR ---
DR ALSTON AT BEDSIDE. DISCUSSED POC WITH PT.
[2019-09-20 17:00] VITALS: BP 109/63
--- NOTE | 2019-09-20 19:26 | NUR ---
Opening Shift Note Assumed care of patient, awake and alert x 3. No S/S of distress/SOB. Bed is in lowest position and locked. Call light within reach. Board updated. Tele box number matches monitor and leads are in correct placement. Patient is on 1 l/min NC currently. Instructed on POC and to call for assist PRN, will continue to monitor for changes Q1hr and PRN.
--- NOTE | 2019-09-20 21:57 | NUR ---
Paging hospitalist to ask for medication for pain. Patient is reporting pain 10 out of 10 in his neck and medial back. Patient has cervical back surgery for cervical fracture many years ago and states he has a metal plate in his neck that frequently causes him pain. Patient states he does take medication regularly at home but does not remember what it is. Vitals are currently WNL except RR which is 22.. Patient is still having shortness of breath on 3 l/min NC with some wheezing but states pain is so bad he cannot sleep.
--- NOTE | 2019-09-20 22:05 | NUR ---
Dani hospitalist also because patient has had low urine output today which is dark, tea colored. Patient's intake for today between 0700 and 1900 was 2400ml but his urine output was only 600mls. He has voided only 100mls since then of dark tea colored urine. BUN and creatine levels are WNL (12 and 0.72). Patient is receiving NS at 50 mls/hr. Patient had 2 esophageal varices banded on 09/16/19 by MD Osman. Addendum: 09/21/19 at 0021 by IRIS GOMEZ RN Patient's urine has been dark kirk colored for the past few days and his BUN and creatine are at normal levels. Will notify hospitalist if urine color does not improve or if urine output is less than 30 ml/hr. Addendum: 09/21/19 at 0021 by IRIS GOMEZ RN Will notify later if necessary, not now.
[2019-09-20 22:18] VITALS: BP 117/54
--- NOTE | 2019-09-20 23:59 | NUR ---
Paging hospitalist again because patient has been having some upper respiratory/laryngeal wheezing. O2 saturation is now 100% on 2 l/min NC. Lung sounds are diminished at the bases with wheezing near the neck. Respiratory rate is 18, HR: 81. Respiratory recommended PRN breathing treatments and PRN BiPAP.
--- NOTE | 2019-09-21 00:11 | NUR ---
Spoke to MD Darden who ordered the followin) BiPAP PRN /, 2) Albuterol 2.5 mg neb q 4 hrs PRN, 3) Ipratropium 0.5 mg Neb q 4 hrs PRN. Orders repeated, verified, and placed.
[2019-09-21] MEDS ORDERED: IPRATROPIUM BROM 0.5 MG/2.5ML INH SOL NEB PRN (00:15)
[2019-09-21] MEDS ORDERED: ALBUTEROL SULF 2.5 MG/0.5ML(0.5%) NEB SOLN NEB PRN (00:15)
[2019-09-21] MEDS: chlordiazePOXIDE HCL 5 MG CAP PO PRN ×3 (03:57→22:06)
[2019-09-21] MEDS: SODIUM CHLORIDE 0.9% 1,000 ML IV SCH (03:57)
[2019-09-21 05:10] VITALS: BP 114/67
[2019-09-21] MEDS: metroNIDAZOLE 500MG/100ML 100 ML IV SCH ×3 (05:21→22:06)
[2019-09-21] MEDS: GABAPENTIN 300 MG CAP PO SCH ×3 (05:21→22:06)
[2019-09-21 07:13] LABS: Basophils # (auto) 0 uL; Eosinophils # (auto) 0.4 uL; Hemoglobin 7.4 g/dL (13.5-17.5); Lymphocytes # (auto) 0.7 uL; Monocytes # (auto) 0.5 uL; Neutrophils # (auto) 3.1 uL; Platelet Count (auto) 47 10^3/uL (140-450); White Blood Cell 4.8 10^3/uL (4.4-10.8)
[2019-09-21] MEDS: IPRATROPIUM BROM 0.5 MG/2.5ML INH SOL NEB SCH ×3 (07:15→19:48)
[2019-09-21] MEDS: ALBUTEROL SULF 2.5 MG/0.5ML(0.5%) NEB SOLN NEB SCH ×3 (07:15→19:48)
[2019-09-21 07:18] LABS: Eosinophils % (auto) 9.2 % (0.0-7.0); Hematocrit 21.8 % (41.0-53.0); Lymphocytes % (auto) 14.8 % (10.0-50.0); Mean Corpuscular Hgb Conc. 34.2 g/dL (32.0-36.0); Mean Corpuscular Volume 96.5 fL (80.0-100.0); Monocytes % (auto) 10.2 % (0.0-12.0); Neutrophils % (auto) 64.8 % (37.0-80.0); Nucleated Red Blood Cells % 0.1 %; Red Blood Cells 2.25 10^6/uL (4.5-5.90); Red Cell Distribution Width 17.1 % (11.8-14.3)
[2019-09-21 07:43] LABS: Calcium 7.5 mg/dL (8.5-10.1)
--- NOTE | 2019-09-21 07:44 | NUR ---
OPENING SHIFT NOTE ASSUMED CARE OF PATIENT. PATIENT IS AWAKE AND ALERT x4. NO SIGNS OF DISTRESS NOTED. SITTER AT BEDSIDE. INSTRUCTED ON POC AND TO CALL FOR ASSISTANCE PRN. BED IN LOWEST POSITION WITH SIDE RAILS UP X3. WILL CONTINUE TO MONITOR Q1HR.
[2019-09-21 07:45] LABS: BUN/Creatinine Ratio 10.7
[2019-09-21 09:00] VITALS: BP 123/74
[2019-09-21] MEDS: THIAMINE 100mg/ml INJ (200mg/2ml VIAL) IV SCH (10:27)
[2019-09-21] MEDS: PANTOPRAZOLE 40 MG/10 ML VIAL INJ IV SCH ×2 (10:27→22:06)
[2019-09-21] MEDS: cefTRIAXone 1GM/50ML D5W 50 ML IV SCH (10:27)
[2019-09-21] MEDS: FOLIC ACID 1 MG in D5W 5% 50 ML IV SCH (10:28)
[2019-09-21 13:00] VITALS: BP 124/71
--- NOTE | 2019-09-21 13:45 | NUR ---
NOTIFIED DR ALSTON ABOUT PTS INCREASED RESPIRATORY EFFORT. ORDERED TRANSFER TO [facility] AND LASIX [address] AND CARRY OUT.
[2019-09-21] MEDS ORDERED: FUROSEMIDE 40 MG/4 ML VIAL IV ONE (14:30)
--- NOTE | 2019-09-21 16:05 | NUR ---
SPOKE WITH DR ALSTON REGARDING CALLI FOR SITTER. PER MD JULIA DORSEY DC.
[2019-09-21 16:41] VITALS: BP 116/57
--- NOTE | 2019-09-21 17:45 | NUR ---
THORACENTESIS PERFORMED BY DR ENAMORADO. 2215ML REMOVED. CHEST XRAY CLEARED BY . PT TOLERATED WELL.
--- NOTE | 2019-09-21 17:53 | NUR ---
RT NOTE: RT CALLED TO PT'S ROOM TO REMOVE BIPAP. OK TO REMOVE BIPAP @ THIS TIME PER DR. ENAMORADO. PT PLACED ON 2L NASAL CANNULA. PT ON CONT PULSE OX, SPO2 97%, HR 92. NO SOB OR DISTRESS NOTED @ THIS TIME. SITTER @ BEDSIDE.
--- NOTE | 2019-09-21 18:14 | NUR ---
[facility] TRANSFER CANCELED PER DR ENAMORADO AFTER ASSESSING PT.
--- NOTE | 2019-09-21 18:30 | NUR ---
SWALLOW EVALUATED. PATIENT HAS LOWER TEETH ONLY, POOR ORAL HYGIENE. PATIENT ABLE TO FOLLOW DIRECTIONS. PATIENT ABLE TO TOLERATE PUREE DIET TEXTURE WITH THIN LIQUIDS WITH NO OVERT SIGNS OR SYMPTOMS OF ASPIRATION. SOME COUGHING ON MECHANICAL SOFT TRIAL. NURSING NOTIFIED.
--- NOTE | 2019-09-21 19:26 | NUR ---
Opening Shift Note Assumed care of patient, awake and alert x 3. No S/S of distress/SOB. Bed is in lowest position and locked. Call light within reach. Board updated. Tele box number matches monitor and leads are in correct placement. Patient is on 2 l/min NC currently. NS infusing at ordered rate per MD order. Instructed on POC and to call for assist PRN, will continue to monitor for changes Q1hr and PRN.
[2019-09-21 21:31] VITALS: BP 109/65
[2019-09-22] MEDS: SODIUM CHLORIDE 0.9% 1,000 ML IV SCH (00:04)
[2019-09-22] MEDS: ALBUTEROL SULF 2.5 MG/0.5ML(0.5%) NEB SOLN NEB SCH ×5 (01:03→19:33)
[2019-09-22] MEDS: IPRATROPIUM BROM 0.5 MG/2.5ML INH SOL NEB SCH ×5 (01:03→19:33)
[2019-09-22 03:04] VITALS: BP 109/65
[2019-09-22] MEDS: chlordiazePOXIDE HCL 5 MG CAP PO PRN ×2 (04:04→20:20)
[2019-09-22 04:42] VITALS: BP 109/57
[2019-09-22] MEDS: metroNIDAZOLE 500MG/100ML 100 ML IV SCH (05:45)
[2019-09-22] MEDS: GABAPENTIN 300 MG CAP PO SCH ×3 (05:45→21:55)
[2019-09-22 06:06] LABS: Basophils # (auto) 0.1 uL; Eosinophils # (auto) 0.3 uL; Hemoglobin 7.4 g/dL (13.5-17.5); Neutrophils # (auto) 3.2 uL; White Blood Cell 4.7 10^3/uL (4.4-10.8)
[2019-09-22 06:10] LABS: Basophils % (auto) 1.3 % (0.0-2.0); Hematocrit 21.5 % (41.0-53.0); Lymphocytes # (auto) 0.7 uL; Lymphocytes % (auto) 14.2 % (10.0-50.0); Mean Corpuscular Hemoglobin 32.6 pg (28.0-32.0); Mean Corpuscular Hgb Conc. 34.2 g/dL (32.0-36.0); Mean Corpuscular Volume 95.3 fL (80.0-100.0); Monocytes # (auto) 0.4 uL; Monocytes % (auto) 9.6 % (0.0-12.0); Neutrophils % (auto) 67.9 % (37.0-80.0); Platelet Count (auto) 46 10^3/uL (140-450); Red Blood Cells 2.25 10^6/uL (4.5-5.90); Red Cell Distribution Width 17.3 % (11.8-14.3)
[2019-09-22 06:19] LABS: Albumin 2.3 g/dL (3.4-5.0); Calcium 7.4 mg/dL (8.5-10.1); Potassium 4.3 mmol/L (3.5-5.1)
[2019-09-22 06:26] LABS: BUN/Creatinine Ratio 7.9
[2019-09-22 06:29] LABS: Bilirubin, Total 1.1 mg/dL (0.2-1.0); Total Protein 5.2 g/dL (6.4-8.2)
--- NOTE | 2019-09-22 07:50 | NUR ---
Morning note Opening Shift Note Assumed care of patient, awake and alert. Respirations are even and unlabored. No S/S of distress noted. Fall precautions in place, bed in lowest position, breaks locked, side rails up x2, call light with in reach. Instructed on POC and to call for assist PRN, will continue to monitor for changes Q1hr and PRN.
[2019-09-22 08:57] VITALS: BP 107/65
[2019-09-22] MEDS: cefTRIAXone 1GM/50ML D5W 50 ML IV SCH (09:36)
[2019-09-22] MEDS: PANTOPRAZOLE 40 MG/10 ML VIAL INJ IV SCH (09:36)
[2019-09-22] MEDS: THIAMINE 100mg/ml INJ (200mg/2ml VIAL) IV SCH (09:37)
[2019-09-22] MEDS ORDERED: BUDESONIDE (INHALATION) 0.5 MG/2 ML NEB NEB ONE (11:00)
[2019-09-22] MEDS ORDERED: methylPREDNISolone SOD SUCC 125 MG/2 ML VL IV ONE (11:00)
[2019-09-22] MEDS ORDERED: FERROUS SULFATE 325 MG TAB PO ONE (11:15)
[2019-09-22] MEDS ORDERED: BUDESONIDE (INHALATION) 0.5 MG/2 ML NEB ONE (11:15)
--- NOTE | 2019-09-22 11:31 | NUR ---
MN GIVEN WITH 0.5MG PULMICORT, 0.5MG ATROVENT AND 2.5MG ALBUTEROL VIA AEROSOL MASK. PT TOLERATED WELL, NO ADVERSE EFFECT NOTED. WILL CONTINUE TO MONITOR PT.
--- NOTE | 2019-09-22 16:15 | NUR ---
LEFT MESSAGE FOR [facility] [employer] SPECIALIST REGARDING PLACEMENT TO SNF PER DISCHARGE ORDERS.
[2019-09-22] MEDS ORDERED: EPINEPHrine HCL 0.5 ML NEB ONE (16:36)
[2019-09-22] MEDS ORDERED: EPINEPHrine HCL 0.5 ML NEB NEB ONE (16:45)
--- NOTE | 2019-09-22 16:52 | NUR ---
Discharge planning per SS consult, patient has orders for SNF. Referral sent to [facility], patient had no preference. received a follow up call from Stacy and was advised patient is accepted to room [address] Back. Transportation will be arranged [facility] Minerva advised patient's discharge was held by attending doctor. .
[2019-09-22 17:00] VITALS: BP 118/83
[2019-09-22] MEDS: FERROUS SULFATE 325 MG TAB PO SCH (18:00)
[2019-09-22] MEDS: BUDESONIDE (INHALATION) 0.5 MG/2 ML NEB NEB SCH (19:34)
--- NOTE | 2019-09-22 20:00 | NUR ---
open note assumed care of pt. upon entering room sitter at bedside. pt awake and alert. pt is 2L NC with no distress noted or expressed. pt updated on plan of care, no questions at this time. pt bed locked, low and 2x rails up. call light in reach, will round q1hr and prn. this nurse encouraged pt to call as needed. will round q1hr and prn.
[2019-09-22] MEDS: PANTOPRAZOLE 40 MG TAB PO SCH (21:55)
[2019-09-22 22:00] VITALS: BP 112/70
[2019-09-23] VITALS (8 sets, daily range): BP systolic 96–121; BP diastolic 58–74
[2019-09-23] MEDS: ALBUTEROL SULF 2.5 MG/0.5ML(0.5%) NEB SOLN NEB SCH ×4 (00:40→18:23)
[2019-09-23] MEDS: IPRATROPIUM BROM 0.5 MG/2.5ML INH SOL NEB SCH ×4 (00:40→18:22)
[2019-09-23] MEDS ORDERED: HYDROcodone-ACET 5/325MG TAB ONE (00:58)
[2019-09-23] MEDS: GABAPENTIN 300 MG CAP PO SCH ×3 (06:10→21:16)
[2019-09-23] MEDS: BUDESONIDE (INHALATION) 0.5 MG/2 ML NEB NEB SCH ×2 (06:17→18:23)
--- NOTE | 2019-09-23 07:30 | NUR ---
Opening Shift Note Assumed care of patient, awake and alert. No S/S of distress/SOB or pain. Instructed on POC and to call for assist PRN, will continue to monitor for changes Q1hr and PRN. bar attendant and fall precautions in place per safety protocol.
[2019-09-23] MEDS: HYDROcodone-ACET 5/325MG TAB PO PRN ×2 (08:24→16:36)
[2019-09-23] MEDS: FERROUS SULFATE 325 MG TAB PO SCH ×2 (08:25→18:00)
[2019-09-23] MEDS: PANTOPRAZOLE 40 MG TAB PO SCH ×2 (10:04→21:16)
[2019-09-23] MEDS: MULTIPLE VITAMINS W/ MINERALS TAB PO SCH (10:04)
[2019-09-23 10:48] LABS: INR 1.84 (0.9-1.15); Partial Thromboplastin Time 40.2 sec (23.64-32.05)
[2019-09-23 10:56] LABS: Basophils # (auto) 0 uL; Eosinophils # (auto) 0 uL; Hemoglobin 8.4 g/dL (13.5-17.5); Lymphocytes # (auto) 0.3 uL; Mean Corpuscular Hgb Conc. 33.6 g/dL (32.0-36.0); Monocytes # (auto) 0.4 uL
[2019-09-23 11:00] LABS: Basophils % (auto) 0.2 % (0.0-2.0); Hematocrit 24.9 % (41.0-53.0); Lymphocytes % (auto) 5.1 % (10.0-50.0); Mean Corpuscular Hemoglobin 32.3 pg (28.0-32.0); Mean Corpuscular Volume 96.2 fL (80.0-100.0); Monocytes % (auto) 6.2 % (0.0-12.0); Neutrophils # (auto) 5.4 uL; Neutrophils % (auto) 88.5 % (37.0-80.0); Platelet Count (auto) 53 10^3/uL (140-450); Red Blood Cells 2.59 10^6/uL (4.5-5.90)
--- NOTE | 2019-09-23 12:09 | NUR ---
Called Blood Bank Blood bank called by this nurse, per . Herman order, FFP 1 unit to be given at 0700 09/24/19 and 2nd unit to be given during procedure tomorrow. Whitley from blood bank states she will adjust order and will make date night sitter aware of instruction to thaw FFP on time.
--- NOTE | 2019-09-23 14:36 | NUR ---
Nutrition Follow-up Notes Wt.: 64.0 kg Pt's sleeping when rounded this morning. Pt's s/p thoracentesis with 2400 ml drawn, no distress noted earlier. Pt's currently on 2 gm na pureed diet with adequate PO of 75% x 4 per RN doc Est. Needs BW 65 [id number] kcal (25-30 kcal/kgBW), 65-84 gms pro (1.0-1.3 gms/kgBW r/t severe hypoalb). Will continue to monitor pertinent labs and reassess nutrient need prn Labs: GLU 142 H, ALB 2.3 L, JOSÉ ANTONIO 1.1 H, CA 7.4 L. Skin: Roman scale 17, mod risk, pt's left right lower leg multiple small scratches per casting machine service operator. Pls refer to latest [employer] financial[employer] developer's notes for further details GI: Pt had 1 BM today per casting machine service operator. PES: Altered nutrition related lab values r/t current/chronic medical condition aeb hyperglycemia, severe hypoalb hypocalcemia Will continue to monitor PO intake, skin status, pertinent labs and weight trend. F/u in 3 to 5 days. Rec.: 1.) Continue close supervision during meals. 3) If Albumin continues trending down, consider Prostat 1 pkt BID. 3.) Consider daily MVI with minerals and Asc acid 500 mgs BID prn. 4.) Refer pt to RD for further nutrition education and weight monitoring upon discharge. 5.) Continue current plan of care.
--- NOTE | 2019-09-23 16:16 | NUR ---
Transfusion started platelet transfusion started at this time. VSS. Patient instructed to report any signs of transfusion reaction to primary rn he verbalized understanding. Will cont to monitor at bedside at this time.
--- NOTE | 2019-09-23 16:43 | NUR ---
IJ dressing changed IJ dressing changed, using sterile technique. Patient tolerated well, no distress, bleeding, or sob noted. Will cont to monitor.
--- NOTE | 2019-09-23 16:47 | NUR ---
assessment Patient is a 59 year old male who is answering assessment questions. Per patient prior to admission he lived with his friend Alisia at a room and board in [place]. Patient does not remember the address. Patient informed me that Alisia assisted him with his ADL's. Patient has agreed to SNF for rehab before returning home. Ekaterina VALDEZ is satisfying MD order. I informed patient he has a right to speak to a social human services assistants regarding all care. I informed patient he has a right to participate in any and all discharge planning. Patient does not have a POA and advanced directive. I have offered patient information on POA and advanced directives. I informed the patient the advantages and benefits of having an Advanced Directive. Patient verbalized understanding and agreed to discharge plan. Addendum: 09/23/19 at 1650 by Nicole TREJO Amended: Links added.
--- NOTE | 2019-09-23 18:16 | NUR ---
Platelet transfusion ended patient tolerated well with no signs of reaction. VSS. Will cont to monitor
--- NOTE | 2019-09-23 18:23 | NUR ---
Respiratory note: AT BEDSIDE FOR MED NIKKI DIAZ.
--- NOTE | 2019-09-23 19:24 | NUR ---
Care endorsed Patient care endorsed to NIKITA Segal. No distress/sob or pain noted at this time.
--- NOTE | 2019-09-23 20:05 | NUR ---
open note assumed care of pt, upon entering room pt awake, alert. pt has sitter at bedside. pt on 2L NC no distress noted or expressed. pt updated on plan of care, no questions at this time. this nurse asked pt if he had gotten up with PT today, to which he responded "oh yeah, we walked around, went to the store, across the street and walked around". pt bed locked, low and 2x rails up. call light in reach, this nurse encouraged pt to call as needed. educated pt of NPO status after midnight in preparation for procedure in the AM, pt acknowledged and sitter also aware.
[2019-09-24] VITALS (15 sets, daily range): BP systolic 99–136; BP diastolic 61–84
[2019-09-24] MEDS: chlordiazePOXIDE HCL 5 MG CAP PO PRN
[2019-09-24] MEDS: ALBUTEROL SULF 2.5 MG/0.5ML(0.5%) NEB SOLN NEB SCH ×3 (00:17→18:24)
[2019-09-24] MEDS: IPRATROPIUM BROM 0.5 MG/2.5ML INH SOL NEB SCH ×3 (00:17→18:24)
[2019-09-24 05:53] LABS: Basophils # (auto) 0 uL; Basophils % (auto) 0.2 % (0.0-2.0); Eosinophils # (auto) 0.1 uL; Hematocrit 21.8 % (41.0-53.0); Hemoglobin 7.4 g/dL (13.5-17.5); Lymphocytes # (auto) 0.8 uL; Lymphocytes % (auto) 11.3 % (10.0-50.0); Mean Corpuscular Hemoglobin 32.2 pg (28.0-32.0); Mean Corpuscular Hgb Conc. 34.1 g/dL (32.0-36.0); Mean Corpuscular Volume 94.5 fL (80.0-100.0); Monocytes # (auto) 0.7 uL; Monocytes % (auto) 10.1 % (0.0-12.0); Neutrophils # (auto) 5.1 uL; Neutrophils % (auto) 77.4 % (37.0-80.0); Platelet Count (auto) 67 10^3/uL (140-450); Red Blood Cells 2.31 10^6/uL (4.5-5.90); White Blood Cell 6.6 10^3/uL (4.4-10.8)
[2019-09-24] MEDS: GABAPENTIN 300 MG CAP PO SCH ×3 (06:30→22:28)
[2019-09-24] MEDS: HYDROcodone-ACET 5/325MG TAB PO PRN (06:46)
--- NOTE | 2019-09-24 07:07 | NUR ---
FFP initiated. product confirmed and cosigned. no adverse reactions noted or expressed thus far. vitals documented. pt has no complaints at this time. care will be endorsed to day shift RN.
--- NOTE | 2019-09-24 07:39 | NUR ---
Opening Shift Note Assumed care of patient, awake and alert. No S/S of distress/SOB or pain. Instructed on POC including NPO orders and to call for assist PRN, will continue to monitor for changes Q1hr and PRN. plant attendant and fall precautions in place per safety protocol.
[2019-09-24] MEDS: BUDESONIDE (INHALATION) 0.5 MG/2 ML NEB NEB SCH ×2 (07:46→18:25)
[2019-09-24] MEDS: FERROUS SULFATE 325 MG TAB PO SCH ×2 (08:00→18:00)
[2019-09-24] MEDS: MULTIPLE VITAMINS W/ MINERALS TAB PO SCH (10:00)
[2019-09-24] MEDS: PANTOPRAZOLE 40 MG TAB PO SCH ×2 (10:00→22:28)
--- NOTE | 2019-09-24 10:00 | NUR ---
Patient rounds Patient noted angry, voicing "I just want to go leave, I don't even know where I live, I want to get out of here." This RN, educated patient on the risks of leaving AMA. I notified patient about procedure he will have done this afternoon. Patient verbalized understanding and states he will stay and cont with treatment. Patient now walking with PT. Will cont to monitor.
[2019-09-24] MEDS: FUROSEMIDE 40 MG/4 ML VIAL IV SCH (10:34)
--- NOTE | 2019-09-24 14:30 | NUR ---
Patient at Procedure Patient was taken to laboratory mechanic helper for procedure. No signs of distress, sob, or pain noted at this time. chemical laboratory assistant nurse aware of FFP to be given during procedure. Will cont care when patient returns to unit.
[2019-09-24] MEDS ORDERED: fentaNYL CITRATE 100 MCG/2 ML VL ONE (15:42)
[2019-09-24] MEDS ORDERED: MIDAZOLAM HCL 1MG/1ML-2 ML VIAL ONE (15:42)
--- NOTE | 2019-09-24 15:44 | NUR ---
Called Drawing Checker Spoke to Aretha from blood bank laboratory professional to collect specimen for cytology report per MD. Adair reyna.
[2019-09-24] MEDS ORDERED: LIDOCAINE 2%HCL (LOCAL ANESTH.) INJ 20ML MDV ONE ×2 (15:52→16:04)
[2019-09-24] MEDS ORDERED: diphenhdrAMINE HCL 50 MG/1 ML VL ONE (15:57)
[2019-09-24] MEDS ORDERED: ALBUMIN 25% 100 ML IV SCH (16:00)
--- NOTE | 2019-09-24 17:30 | NUR ---
Patient Returned from procedure Patient returned from procedure, No distress/sob or pain noted at this time. Dressing is clean, dry, and intact. VVS: T97.5 HR84 RR16 O2 100 BP 130/80. FFP running at this time, patient tolerating transfusion well, will record post transfusion vitals when finished. SCD's placed on both legs. Drainage containers at bedside. Will cont to monitor patient.
--- NOTE | 2019-09-24 19:12 | NUR ---
Endorsed care Care endorsed care to NIKITA Corbin. Addendum: 09/24/19 at 2006 by GLENNA DAVIS RN RN Notified NIKITA Corbin to administer albumin as ordered per MD. Herman post procedure. NIKITA verbalized understanding and will administer as ordered.
[2019-09-25] MEDS: ALBUTEROL SULF 2.5 MG/0.5ML(0.5%) NEB SOLN NEB SCH ×4 (00:24→18:45)
[2019-09-25] MEDS: IPRATROPIUM BROM 0.5 MG/2.5ML INH SOL NEB SCH ×4 (00:24→18:45)
[2019-09-25] MEDS: chlordiazePOXIDE HCL 5 MG CAP PO PRN (01:51)
[2019-09-25 02:42] VITALS: BP 113/70
--- NOTE | 2019-09-25 04:42 | NUR ---
SITTER AT BEDSIDE;PT RESTING WELL WITH EYES CLOSED;RESP EVEN UNLABORED;CALL LIGHT IN REACH.
[2019-09-25 05:00] VITALS: BP 111/67
[2019-09-25] MEDS: GABAPENTIN 300 MG CAP PO SCH ×2 (06:25→14:46)
--- NOTE | 2019-09-25 06:56 | NUR ---
CALL FROM DR YING RADIOLOGIST WANTING HOSPITALIST TO BE INFORMED THAT THE PATIENT HAS A SMALL PNEUMOTHORAX.WILL PASS ONTO DAYSHIFT BECAUSE THE PATIENT IS BEING FOLLOWED BY THE HOSPITALIST-WHO WILL BE IN AT APPROX 0830 THIS AM.
--- NOTE | 2019-09-25 07:23 | NUR ---
SPOKE WITH JUSTICE PROFESSOR ALBERTO BECAUSE PT WAS OFF FLOOR DURING [id number] AND THE ALBUMIN ORDERED FOR 1700 WAS NOT GIVEN.PT DID COME BACK TO THE FLOOR AT 1730;HOWEVER HIS 1700 MEDICATION WAS STILL NOT ADMINISTERED. CHECKED WITH PHARMACY BECAUSE THE ORDERS STATE "ALBUMIN STOP DATE COMPLETE". UPON ADVICE OF JUSTICE PROFESSOR-WILL PASS TO DAYSHIFT RN TO ASK DR CHARLES IF SHE STILL WANTS THE ALBUMIN ADMINISTERED-AND NEW ORDERS CAN BE IMPLEMENTED.
--- NOTE | 2019-09-25 07:48 | NUR ---
Opening Shift Note Assumed care of patient, awake and alert x4. No S/S of distress/SOB. Patient c/o pain on right rib area, where Pleurx catheter is placed. Will medicate as prescribed by MD. Bed at lowest locked position and call light within reach. Instructed on POC and to call for assist PRN, will continue to monitor for changes Q1hr and PRN.
[2019-09-25] MEDS: BUDESONIDE (INHALATION) 0.5 MG/2 ML NEB NEB SCH ×2 (08:23→18:44)
[2019-09-25 09:00] VITALS: BP 105/52
[2019-09-25] MEDS: FERROUS SULFATE 325 MG TAB PO SCH ×2 (09:00→18:00)
[2019-09-25] MEDS: MULTIPLE VITAMINS W/ MINERALS TAB PO SCH (09:00)
[2019-09-25] MEDS: PANTOPRAZOLE 40 MG TAB PO SCH (09:00)
[2019-09-25] MEDS: ALBUMIN 25% 100 ML IV SCH ×2 (09:00→17:25)
[2019-09-25] MEDS: HYDROcodone-ACET 5/325MG TAB PO PRN (09:01)
[2019-09-25] MEDS: FUROSEMIDE 40 MG/4 ML VIAL IV SCH (10:00)
[2019-09-25] MEDS ORDERED: AMOXICILLIN/CLAVUL 875 MG TAB PO SCH (10:00)
--- NOTE | 2019-09-25 10:15 | NUR ---
Right Pleurex Catheter Drained 1900ml of fluid from Right Pleurex Catheter . Patient tolerated well . Educated patient.
[2019-09-25 13:00] VITALS: BP 108/68
--- NOTE | 2019-09-25 15:53 | NUR ---
Discharge planning per consult, patient has orders to dc to SNF. Referral sent to [facility] [phone]. Patient was accepted to room 9-B under Dr. Back. [phone] and scheduled warehouse picker is for 5:45pm. Nurse Francine was advised of dc plan. Addendum: 09/25/19 at 1556 by WILLIAM CRAFT Amended: Links added.
--- NOTE | 2019-09-25 16:10 | NUR ---
Discharge Transfers Patient is being transferred to [facility] in [place]. Patient is to follow up with accepting doctor at the receiving facility, Dr. Back. Gave report to Lissa SHELTON Addendum: 09/25/19 at 1828 by Hannah Guevaar [facility]
[2019-09-25] MEDS ORDERED: ALBUMIN 25% 200 ML IV ONE (16:16)
[2019-09-25 17:00] VITALS: BP 112/68
--- NOTE | 2019-09-25 17:00 | NUR ---
Patient is refusing Right Pleurx dressing change.
--- NOTE | 2019-09-25 18:23 | NUR ---
Discharge Discharge instructions given as ordered. Encourage to follow up with PMD as instructed. All questions and concerns addressed. Patient verbalized understanding. Medication reconciliation form completed and copy given to patient. Home medications held in Pharmacy returned to patient, IV removed with catheter intact, pressure dressing applied.Telemetry unit returned to ICU. Patient taken to non vehicle via stretcher with all personal belongings, accompanied by [employer]. No distress noted at time of departure.
== END 2019-09-25 18:25 | DRG 208 ==
LOC: ER 14:15 → TELE 14:16 → ICU WEST 09-17 15:33 → TELE-WESTW 09-19 23:15
PROVIDERS: ADMIT Nurse Practitioner Acute Care; ATTEND Internal Medicine
PROC: 5A1945Z Respiratory Ventilation, 24-96 Consecutive Hours (ICD-10-PCS; principal; 2019-09-15)
PROC: 0BH17EZ Insertion of Endotracheal Airway into Trachea, Via Natural or Artificial Opening (ICD-10-PCS; 2019-09-15)
PROC: 30233N1 Transfusion of Nonautologous Red Blood Cells into Peripheral Vein, Percutaneous Approach (ICD-10-PCS; 2019-09-16)
PROC: 06L38CZ Occlusion of Esophageal Vein with Extraluminal Device, Via Natural or Artificial Opening Endoscopic (ICD-10-PCS; 2019-09-16)
PROC: 02HV33Z Insertion of Infusion Device into Superior Vena Cava, Percutaneous Approach (ICD-10-PCS; 2019-09-16)
PROC: B548ZZA Ultrasonography of Superior Vena Cava, Guidance (ICD-10-PCS; 2019-09-16)
PROC: 0W993ZZ Drainage of Right Pleural Cavity, Percutaneous Approach (ICD-10-PCS; 2019-09-18)
PROC: 5A09357 Assistance with Respiratory Ventilation, Less than 24 Consecutive Hours, Continuous Positive Airway Pressure (ICD-10-PCS; 2019-09-21)
PROC: 0W993ZZ Drainage of Right Pleural Cavity, Percutaneous Approach (ICD-10-PCS; 2019-09-21)
PROC: 30233R1 Transfusion of Nonautologous Platelets into Peripheral Vein, Percutaneous Approach (ICD-10-PCS; 2019-09-23)
PROC: 30233K1 Transfusion of Nonautologous Frozen Plasma into Peripheral Vein, Percutaneous Approach (ICD-10-PCS; 2019-09-24)
PROC: 0JH63XZ Insertion of Tunneled Vascular Access Device into Chest Subcutaneous Tissue and Fascia, Percutaneous Approach (ICD-10-PCS; 2019-09-24)
PROC: 05HY33Z Insertion of Infusion Device into Upper Vein, Percutaneous Approach (ICD-10-PCS; 2019-09-24)
PROC: B54MZZA Ultrasonography of Right Upper Extremity Veins, Guidance (ICD-10-PCS; 2019-09-24)
PROC: B51V1ZA Fluoroscopy of Other Veins using Low Osmolar Contrast, Guidance (ICD-10-PCS; 2019-09-24)
DX: J96.01 Acute respiratory failure with hypoxia (principal); J12.2 Parainfluenza virus pneumonia; I85.11 Secondary esophageal varices with bleeding; G93.41 Metabolic encephalopathy; N17.0 Acute kidney failure with tubular necrosis; A41.9 Sepsis, unspecified organism; E43 Unspecified severe protein-calorie malnutrition; R57.8 Other shock; K76.6 Portal hypertension; J90 Pleural effusion, not elsewhere classified; K86.1 Other chronic pancreatitis; J44.0 Chronic obstructive pulmonary disease with (acute) lower respiratory infection; D68.9 Coagulation defect, unspecified; K70.30 Alcoholic cirrhosis of liver without ascites; E11.22 Type 2 diabetes mellitus with diabetic chronic kidney disease; C45.9 Mesothelioma, unspecified; K86.9 Disease of pancreas, unspecified; K72.90 Hepatic failure, unspecified without coma; D69.6 Thrombocytopenia, unspecified; N18.3 Chronic kidney disease, stage 3 (moderate); K31.89 Other diseases of stomach and duodenum; D64.9 Anemia, unspecified; K52.9 Noninfective gastroenteritis and colitis, unspecified; Z68.24 Body mass index [BMI] 24.0-24.9, adult
CPT/HCPCS: 10022; 31500; 32555; 36415; 36561; 36600; 43244; 51702; 70450; 71045; 71250; 74176; 76000; 76942; 77001; 80048; 80053; 80307; 81001; 82140; 82270; 82607; 82746; 82805; 83036; 83605; 83615; 83735; 83880; 83986; 84154; 84425; 84443; 84484; 85014; 85018; 85025; 85610; 85730; 86301; 86304; 86850; 86900; 86901; 86920; 87040; 87070; 87077; 87081; 87205; 89051; 92610; 93005; 93306; 94002; 94003; 94640; 94660; 97116; 97163; 97530; 99291; A4223; A4565; C1729; C9113; G0378; J0330; J0696; J1956; J2001; J2250; J2704; J3490; J7060; P9047